=== PATIENT | female | born 1970 | race Two or more races ===

== ENCOUNTER 2017-06-27 10:42 | Emergency (ER) | payer SELFPAY ==
[2017-06-27 10:51] VITALS: BP 99/61
[2017-06-27] MEDS ORDERED: Sodium Chloride 0.9% 10 ML Syringe FLUSH PRN (11:02)
[2017-06-27] MEDS ORDERED: Sodium Chloride 0.9% 1,000 ML IV ONE (11:02)
[2017-06-27] MEDS ORDERED: Ketorolac 30 MG/ML SDV IVPUSH ONE (11:02)
[2017-06-27] MEDS ORDERED: Morphine 4 MG/ML Syringe IVPUSH PRN (11:21)
--- NOTE | 2017-06-27 11:24 | EDM.PDOC ---
<Manas Pedraza Sharyn - Last Filed: 06/27/17 11:43> ED HPI GENERAL MEDICAL PROBLEM - General Chief Complaint: Gastrointestinal Problem Stated Complaint: FLANK/BACK PAIN Time Seen by Provider: 06/27/17 11:01 Source of Information: Reports: Patient History Limitations: Reports: No Limitations - History of Present Illness INITIAL COMMENTS - FREE TEXT/NARRATIVE: The patient is a 46-year-old female who presents with abdominal pain and flank pain. Pain is been present for 3 days. She initially thought it was due to a kidney problem and took some leftover penicillin. This did not help. Pain is located in the right side of the abdomen and the right back. Pain is constant cramping, severe, worse with eating and movement. She does have nausea, no vomiting. No diarrhea. No dysuria or hematuria. She ate gorditas does last night for dinner and the seem to provoke the pain. That was her last oral intake. No fever. No cough/SOB. Right Upper Abdominal Pain Score (Numeric/FACES): 5 - Related Data Allergies Allergy/AdvReac Type Severity Reaction Status Date / Time No Known Allergies Allergy Verified 06/27/17 10:52 Home Meds: Home Meds Hydrocodone/Acetaminophen [Wilmot 5-325 Tablet] 1 - 2 each PO Q6H PRN #20 tablet 06/27/17 [Rx] Ondansetron [Zofran ODT] 4 mg PO Q4H PRN #12 tab.dis 06/27/17 [Rx] Past Medical History Gastrointestinal History: Reports: Cholelithiasis - Past Surgical History Female Surgical History: Reports: Hysterectomy Social & Family History - Family History Family Medical History: Noncontributory - Tobacco Use Smoking Status *Q: Never Smoker Second Hand Smoke Exposure: No - Caffeine Use Caffeine Use: Reports: None - Alcohol Use Days Per Week of Alcohol Use: 0 Number of Drinks Per Day: 0 Total Drinks Per Week: 0 - Recreational Drug Use Recreational Drug Use: No Drug Use in Last 12 Months: No - Living Situation & Occupation Occupation: Employed ED ROS GENERAL - Review of Systems Review Of Systems: See Below Constitutional: Reports: Malaise. Denies: Fever HEENT: Reports: No Symptoms Respiratory: Denies: Cough Cardiovascular: Denies: Chest Pain Endocrine: Reports: No Symptoms GI/Abdominal: Reports: Abdominal Pain, Nausea, Vomiting : Reports: Flank Pain. Denies: Dysuria, Hematuria Musculoskeletal: Reports: No Symptoms Skin: Reports: No Symptoms Neurological: Reports: No Symptoms Psychiatric: Reports: No Symptoms Hematologic/Lymphatic: Reports: No Symptoms Immunologic: Reports: No Symptoms Course - Vital Signs Last Recorded V/S: Last Vital Signs Temp 36.7 C 06/27/17 10:49 Pulse 65 06/27/17 10:49 Resp 16 06/27/17 10:49 BP 99/61 06/27/17 10:49 Pulse Ox 98 06/27/17 10:49 - Orders/Labs/Meds Orders: Active Orders 24 hr Category Date Time Status Peripheral IV Care [RC] . DIRECTED Care 06/27/17 11:02 Active Abdomen Ltd [US] Stat Exams 06/27/17 11:20 Taken Morphine Med 06/27/17 11:21 Active 4 mg IVPUSH Q2H PRN Sodium Chloride 0.9% [Saline Flush] Med 06/27/17 11:02 Active 10 ml FLUSH ASDIRECTED PRN Peripheral IV Insertion Adult [OM.PC] Routine Oth 06/27/17 11:02 Ordered Medication Orders Morphine Sulfate (Morphine) 4 mg IVPUSH Q2H PRN PRN Reason: Pain Sodium Chloride (Saline Flush) 10 ml FLUSH ASDIRECTED PRN PRN Reason: Keep Vein Open Last Admin: 06/27/17 11:12 Dose: 10 ml Labs: Laboratory Tests 06/27/17 06/27/17 06/27/17 Range/Units 11:13 11:13 11:55 WBC 6.29 (3.98-10.04) K/mm3 RBC 4.48 (3.98-5.22) M/mm3 Hgb 13.8 (11.2-15.7) gm/L Hct 40.3 (34.1-44.9) % MCV 90.0 (79.4-94.8) fl MCH 30.8 (25.6-32.2) pg MCHC 34.2 (32.2-35.5) g/dl RDW Std Deviation 41.8 (36.4-46.3) fL Plt Count 271 (182-369) K/mm3 MPV 9.5 (9.4-12.3) fl Neut % (Auto) 62.3 (34.0-71.1) % Lymph % (Auto) 27.8 (19.3-51.7) % [place] % (Auto) 6.0 (4.7-12.5) % Eos % (Auto) 3.5 (0.7-5.8) Baso % (Auto) 0.2 (0.1-1.2) % Neut # (Auto) 3.92 (1.56-6.13) K/mm3 Lymph # (Auto) 1.75 (1.18-3.74) K/mm3 [place] # (Auto) 0.38 H (0.24-0.36) K/mm3 Eos # (Auto) 0.22 (0.04-0.36) K/mm3 Baso # (Auto) 0.01 (0.01-0.08) K/mm3 Sodium 138 (136-145) mEq/L Potassium 3.7 (3.5-5.1) mEq/L Chloride 104 (98-107) mEq/L Carbon Dioxide 25 (21-32) mEq/L Anion Gap 12.7 (5-15) BUN 10 (7-18) mg/dL Creatinine 0.7 (0.55-1.02) mg/dL Est Cr Clr Drug Dosing 72.90 mL/min Estimated GFR (MDRD) > 60 (>60) mL/min BUN/Creatinine Ratio 14.3 (14-18) Glucose 97 (74-106) mg/dL Calcium 8.8 (8.5-10.1) mg/dL Total Bilirubin 1.0 (0.2-1.0) mg/dL AST 18 (15-37) U/L ALT 26 (14-59) U/L Alkaline Phosphatase 76 (46-116) U/L Total Protein 7.5 (6.4-8.2) g/dl Albumin 3.8 (3.4-5.0) g/dl Globulin 3.7 gm/dL Albumin/Globulin Ratio 1.0 (1-2) Lipase 112 (73-393) U/L Urine Color Yellow (Yellow) Urine Appearance Clear (Clear) Urine pH 6.0 (5.0-8.0) Ur Specific [place] 1.025 (1.005-1.030) Urine Protein Negative (Negative) Urine Glucose (UA) Negative (Negative) Urine Ketones Negative (Negative) Urine Occult Blood Negative (Negative) Urine Nitrite Negative (Negative) Urine Bilirubin Negative (Negative) Urine Urobilinogen 0.2 (0.2-1.0) Ur Leukocyte Esterase Negative (Negative) Urine RBC 0-5 (0-5) /hpf Urine WBC 0-5 (0-5) /hpf Ur Epithelial Cells 0-5 (0-5) /hpf Urine Bacteria Few (FEW) /hpf Urine Mucus Not seen (FEW) /hpf Meds: Medications Generic Name Dose Route Start Last Admin Trade Name Freq PRN Reason Stop Dose Admin Morphine Sulfate 4 mg 06/27/17 11:21 Morphine IVPUSH Q2H PRN Pain Sodium Chloride 10 ml 06/27/17 11:02 06/27/17 11:12 Saline Flush FLUSH 10 ml ASDIRECTED PRN Administration Keep Vein Open Discontinued Medications Generic Name Dose Route Start Last Admin Trade Name Freq PRN Reason Stop Dose Admin Sodium Chloride 1,000 mls @ 1,000 mls/hr 06/27/17 11:02 06/27/17 11:12 Normal Saline IV 06/27/17 12:01 1,000 mls/hr ONETIME ONE Administration Ketorolac Tromethamine 30 mg 06/27/17 11:02 06/27/17 11:12 Toradol IVPUSH 06/27/17 11:03 30 mg ONETIME ONE Administration - Re-Assessments/Exams Free Text/Narrative Re-Assessment/Exam: 06/27/17 11:44 Labs including CBC, LFT's, and lipase are unremarkable. U/S and UA pending. Patient signed out to Dr. Alamo for further ED care. Departure - Departure Disposition: Home, Self-Care 01 Clinical Impression: Right upper quadrant pain, Fatty liver disease, nonalcoholic - Discharge Information Prescriptions: Hydrocodone/Acetaminophen [Wilmot 5-325 Tablet] 1 - 2 each PO Q6H PRN #20 tablet PRN Reason: Abdominal Pain Ondansetron [Zofran ODT] 4 mg PO Q4H PRN #12 tab.dis PRN Reason: Nausea/Vomiting Referrals: PCP,None [Primary Care Provider] - Forms: ED Department Discharge Additional Instructions: Return to the emergency room with any questions problems worsening symptoms. Advance diet as tolerated today mostly liquids. And then slowly advance as tolerated avoid fatty foods. We need to get a HYDA scan, this is a skin looking at how your gallbladder works. This will be scheduled as an outpatient. He need to follow-up in the clinic after this is done. Follow-up in the Hospital clinic after HYDA scan. [phone] You been started on 2 medications the first one is hydrocodone this is a pain medication use if needed for pain, take one or 2 tablets every 6 hours as needed. Allow 12 hours after using this medication before driving or returning to work. The second medication is Zofran this is for nausea and/or vomiting it will dissolve under or on top of your tongue so you do not need to swallow it. <Mathieu Alamo - Last Filed: 06/27/17 13:43> ED EXAM, GI/ABD - Physical Exam Exam: See Below Exam Limited By: No Limitations General Appearance: Alert, No Apparent Distress Respiratory/Chest: No Respiratory Distress, Lungs Clear, Normal Breath Sounds Cardiovascular: Regular Rate, Rhythm, No Edema, No Murmur GI/Abdominal Exam: Normal Bowel Sounds, Soft, Other (She has right upper quadrant discomfort no significant epigastric discomfort no other palpable discomfort no rigidity rebound or guarding noted) Back Exam: Normal Inspection. No: CVA Tenderness (L), CVA Tenderness (R), Vertebral Tenderness Course - Re-Assessments/Exams Free Text/Narrative Re-Assessment/Exam: 06/27/17 13:32 Ultrasound evaluation reveals no acute changes other than an enlarged liver, or fatty liver. No gallstones seen. She had significant discomfort with the study. On my exam heart regular rhythm no murmur lungs clear respirations nonlabored back no significant CVA discomfort abdomen active bowel sounds soft she has some right upper quadrant discomfort with palpation. At this point the ultrasound-guided good view of the right kidney that measured normal no evidence of hydronephrosis or stones. We will order a hiatus scan have the patient follow-up in the clinic we'll discharge her with Wilmot and Lulú Departure - Departure Time of Disposition: 13:34
--- NOTE | 2017-06-29 11:40 | US ---
Limited abdominal ultrasound: Multiple real-time images of the upper right abdomen were obtained. Liver is slightly echogenic. No focal abnormality is appreciated within the liver. Gallbladder shows no gallstones. No gallbladder wall thickening or biliary duct dilatation is seen. Right kidney shows no hydronephrosis or mass. Right kidney measures 12.8 cm in length. Pancreas appears within normal limits. Impression: 1. Probable fatty infiltration. 2. No additional abnormality is identified on the right upper quadrant abdominal ultrasound. Diagnostic code #2 I agree with preliminary report issued by [employer] ([facility] report finalized on 06/27/17, 1:33 PM Central Time)
== END 2017-06-27 14:00 | disposition home or self-care (01) ==
LOC: JD.ED 10:42
DX: K76.0 Fatty (change of) liver, not elsewhere classified (principal)
CPT/HCPCS: 36415; 76705; 80053; 81001; 83690; 85025; 96361; 96374; 99284; J1885; J7040; J7050

== ENCOUNTER 2020-08-23 20:01 | Emergency (ER) | payer SELFPAY ==
[2020-08-23 20:29] VITALS: BP 135/67; PULSE 88
--- NOTE | 2020-08-23 21:20 | EDM.PDOC ---
ED HPI GENERAL MEDICAL PROBLEM - General Chief Complaint: Abdominal Pain Stated Complaint: ABDOMINAL PAIN Time Seen by Provider: 08/23/20 20:25 Source of Information: Reports: Patient, Family History Limitations: Reports: No Limitations - History of Present Illness INITIAL COMMENTS - FREE TEXT/NARRATIVE: This is a 49-year-old female. She has a long history of right upper quadrant abdominal pain thought to be her gallbladder yet she does not have gallstones and she has not had a HIDA scan. She has a history of persistent diarrhea no blood. Apparently on Wednesday she had an episode of severe left upper quadrant pain that seemed to radiate toward the epigastric area. She was having this left upper quadrant pain initially it seemed to go up into her neck and down into her pelvis. She states she does not have a history of heartburn. She does not have a history of cardiac disease. It made her nauseated but she did not vomit. She apparently had something that was very greasy just prior to having this left upper quadrant pain. She denies any lower quadrant pain and no urinary tract symptoms. She has had no fever or cough. Planes of continued pain in the left upper quadrant though it is better than it was on Wednesday. The technical translator for her is her son. Left Upper Abdominal Pain Score (Numeric/FACES): 9 - Related Data Allergies Allergy/AdvReac Type Severity Reaction Status Date / Time No Known Allergies Allergy Verified 08/23/20 20:29 Home Meds: Home Meds Dicyclomine [Bentyl] 20 mg PO TID #20 tab 08/23/20 [Rx] Past Medical History - Past Health History Medical/Surgical History: Denies Medical/Surgical History Gastrointestinal History: Reports: Cholelithiasis Genitourinary History: Reports: Renal Calculus - Past Surgical History Female Surgical History: Reports: Hysterectomy Social & Family History - Family History Family Medical History: No Pertinent Family History - Tobacco Use Tobacco Use Status *Q: Never Tobacco User Second Hand Smoke Exposure: No - Caffeine Use Caffeine Use: Reports: Coffee - Recreational Drug Use Recreational Drug Use: No - Living Situation & Occupation Occupation: Employed ED ROS GENERAL - Review of Systems Review Of Systems: See Below Constitutional: Denies: Fever, Chills HEENT: Reports: No Symptoms Respiratory: Denies: Shortness of Breath, Cough Cardiovascular: Reports: Chest Pain Endocrine: Reports: No Symptoms GI/Abdominal: Reports: Abdominal Pain, Diarrhea, Nausea. Denies: Black Stool, Bloody Stool, Vomiting : Reports: No Symptoms Musculoskeletal: Reports: No Symptoms Skin: Reports: No Symptoms Neurological: Reports: No Symptoms Psychiatric: Reports: No Symptoms Hematologic/Lymphatic: Reports: No Symptoms ED EXAM, GI/ABD - Physical Exam Exam: See Below Exam Limited By: No Limitations General Appearance: Alert, WD/WN, No Apparent Distress Eyes: Bilateral: Normal Appearance Ears: Normal External Exam Nose: Normal Inspection Throat/Mouth: Normal Voice, No Airway Compromise Head: Normocephalic Neck: Supple Respiratory/Chest: No Respiratory Distress, Lungs Clear, Normal Breath Sounds Cardiovascular: Regular Rate, Rhythm, No Murmur GI/Abdominal Exam: Soft, Other (Her bowel sounds are positive but they are decreased. She has tenderness all across her upper abdomen including the right upper quadrant the epigastric and the left upper quadrant. It seems that the right upper quadrant is probably more tender now than the left upper quadrant. She denies any lower abdominal quadrant tenderness on palpation. She does not appear to have peritoneal signs and no rebound.) Back Exam: Full Range of Motion Extremities: Normal Inspection, Normal Range of Motion Neurological: Alert, Oriented Psychiatric: Normal Affect, Normal Mood Skin Exam: Warm, Dry #1 Interpretation EKG Date: 08/23/20 Time: 20:30 EKG Interpretation Comments: EKG shows a normal sinus rhythm rate of 84. She has no acute ST or T wave changes, there is no acute ischemia noted. It does suggest possible Q waves in the anterior septal area suggesting an old anterior septal infarct but she does not have a history of any sort of cardiac problems. Course - Vital Signs Last Recorded V/S: Last Vital Signs Temp 98.2 F 08/23/20 20:18 Pulse 88 08/23/20 20:18 Resp 18 08/23/20 20:18 BP 135/67 08/23/20 20:18 Pulse Ox 95 08/23/20 20:18 - Orders/Labs/Meds Orders: Active Orders 24 hr Category Date Time Status Abdomen Pelvis w Cont [CT] Stat Exams 08/23/20 21:49 Taken KUB [Abdomen 1V Flat] [CR] Stat Exams 08/23/20 21:14 Taken Labs: Laboratory Tests 08/23/20 08/23/20 Range/Units 20:31 20:37 WBC 7.30 (3.98-10.04) K/mm3 RBC 4.68 (3.98-5.22) M/mm3 Hgb 14.2 (11.2-15.7) gm/dl Hct 42.3 (34.1-44.9) % MCV 90.4 (79.4-94.8) fl MCH 30.3 (25.6-32.2) pg MCHC 33.6 (32.2-35.5) g/dl RDW Std Deviation 40.9 (36.4-46.3) fL Plt Count 250 (182-369) K/mm3 MPV 9.7 (9.4-12.3) fl Neut % (Auto) 57.2 (34.0-71.1) % Lymph % (Auto) 34.8 (19.3-51.7) % [place] % (Auto) 6.0 (4.7-12.5) % Eos % (Auto) 1.6 (0.7-5.8) Baso % (Auto) 0.1 (0.1-1.2) % Neut # (Auto) 4.17 (1.56-6.13) K/mm3 Lymph # (Auto) 2.54 (1.18-3.74) K/mm3 [place] # (Auto) 0.44 H (0.24-0.36) K/mm3 Eos # (Auto) 0.12 (0.04-0.36) K/mm3 Baso # (Auto) 0.01 (0.01-0.08) K/mm3 Sodium 139 (136-145) mEq/L Potassium 3.7 (3.5-5.1) mEq/L Chloride 101 (98-107) mEq/L Carbon Dioxide 26 (21-32) mEq/L Anion Gap 15.7 H (5-15) BUN 10 (7-18) mg/dL Creatinine 0.7 (0.55-1.02) mg/dL Est Cr Clr Drug Dosing 70.60 mL/min Estimated GFR (MDRD) > 60 (>60) mL/min BUN/Creatinine Ratio 14.3 (14-18) Glucose 156 H (74-106) mg/dL Calcium 9.4 (8.5-10.1) mg/dL Total Bilirubin 0.9 (0.2-1.0) mg/dL AST 45 H (15-37) U/L ALT 78 H (14-59) U/L Alkaline Phosphatase 99 (46-116) U/L Troponin I < 0.017 (0.00-0.056) ng/mL C-Reactive Protein 0.7 (<1.0) mg/dL Total Protein 8.3 H (6.4-8.2) g/dl Albumin 4.3 (3.4-5.0) g/dl Globulin 4.0 gm/dL Albumin/Globulin Ratio 1.1 (1-2) Lipase 150 (73-393) U/L - Radiology Interpretation Free Text/Narrative:: The KUB shows a balled up amount of stool in that left upper quadrant colon. I do not see a distinct area of obstruction or coarctation. - Re-Assessments/Exams Free Text/Narrative Re-Assessment/Exam: 08/23/20 23:02 Patient's lab work was essentially normal. White count was normal hemoglobin was normal. Electrolytes were okay. Her liver enzymes are slightly elevated. But her troponin and C-reactive protein and lipase were all normal. 08/23/20 23:55 Spoke to the patient and the son regarding the CT scan of her abdomen. There are no acute intra-abdominal findings. She is not appearing to have any bladder infection type symptoms. I encouraged her to drink lots of fluids that her left upper quadrant abdominal pain by the x-ray suggest a clump of stool caught in the colon and is cramping. I am hoping that the oral contrast will move this along and break it up. Departure - Departure Time of Disposition: 23:56 Disposition: Home, Self-Care 01 Condition: Fair Clinical Impression: Obstipation, Abdominal cramps - Discharge Information *PRESCRIPTION DRUG MONITORING PROGRAM REVIEWED*: Not Applicable *COPY OF PRESCRIPTION DRUG MONITORING REPORT IN PATIENT BERNIE: Not Applicable Prescriptions: Dicyclomine [Bentyl] 20 mg PO TID #20 tab Instructions: Constipation, Adult Referrals: PCP,None [Primary Care Provider] - Forms: ED Department Discharge Additional Instructions: Continue to drink lots of fluids to help break up the stool, use the Bentyl as needed for abdominal cramps, you need to start some stool softeners and eat more fibrous foods, follow-up with your family provider this coming week for recheck, return to the ER if needed Sepsis Event Note (ED) - Evaluation Sepsis Screening Result: No Definite Risk - Focused Exam Vital Signs: Vital Signs Temp Pulse Resp BP Pulse Ox 08/23/20 20:18 98.2 F 88 18 135/67 95 - My Orders Last 24 Hours: My Active Orders 08/23/20 21:14 KUB [Abdomen 1V Flat] [CR] Stat 08/23/20 21:49 Abdomen Pelvis w Cont [CT] Stat - Assessment/Plan Last 24 Hours: My Active Orders 08/23/20 21:14 KUB [Abdomen 1V Flat] [CR] Stat 08/23/20 21:49 Abdomen Pelvis w Cont [CT] Stat
--- NOTE | 2020-08-24 19:45 | CR ---
Abdomen: Supine view of the abdomen was obtained. Comparison: Prior abdominal x-ray of 05/02/18. Bowel gas pattern appears normal. Calcifications are seen off the lateral right hip compatible with probable dystrophic calcifications. No soft tissue abnormality is seen. Calcifications are noted within the right pelvis most likely representing phleboliths. Impression: 1. Nothing acute is seen on supine abdominal x-ray. Diagnostic code #2
--- NOTE | 2020-08-25 10:46 | CT ---
CT abdomen and pelvis Technique: Multiple axial sections were obtained from above the dome of the diaphragm inferiorly through the pubic symphysis. Intravenous contrast was not utilized. Oral contrast has been given. Reconstructed coronal and sagittal images were obtained. Comparison: Previous CT abdomen and pelvis exam of 09/28/17. Findings: Visualized lung bases show nothing acute. Severe fatty infiltration is seen within an enlarged liver. Gallbladder contains no calcified gallstones. Spleen appears normal. Adrenal glands show no nodule. Pancreas shows no abnormality. Both kidneys show minimal nonobstructing calculi measuring in the 1-2 mm range. No ureteral dilatation is seen. Aorta shows no aneurysm. No retroperitoneal adenopathy or mesenteric abnormalities are seen. Small fat-containing umbilical hernia is noted. No pelvic mass or adenopathy is seen. Bladder wall appears to be diffusely thickened. Previous hysterectomy is noted. Bone window settings were reviewed which show minimal degenerative change. Impression: 1. Enlarged liver which shows diffuse fatty infiltration. 2. Bladder wall thickening most likely representing cystitis. Please correlate. 3. Other findings as noted above which I believe are most likely incidental. Diagnostic code #3 I agree with preliminary report from [facility], finalized on 08/24/20, 12:41 AM [employer]
== END 2020-08-24 00:10 | disposition home or self-care (01) ==
LOC: JD.ED 20:01
DX: K59.00 Constipation, unspecified (principal)
CPT/HCPCS: 36415; 74018; 74018-26; 74177; 74177-26; 80053; 83690; 84484; 85025; 86140; 93005; 99283; 99284-25